=== PATIENT | male | born 1980 | race African-American/Black ===

== ENCOUNTER → 2019-01-03 | Outpatient (CLI) | payer OTHER ==
--- NOTE | 2019-01-03 18:18 | RAD ---
CT scan of the head without contrast 01/03/2019 Clinical History: Head injury. Headache. Technique: Unenhanced, contiguous, 5 mm axial sections were obtained through the head. One or more of the following individualized dose reduction techniques were utilized for this study: 1. Automated exposure control. 2. Adjustment of the mA and/or kV according to patient size. 3. Use of iterative reconstruction technique. Findings: The ventricles and sulci are within normal limits in size and configuration. No focal area of abnormal attenuation is seen involving the brain parenchyma. No extra-axial fluid collection is seen. No skull fracture is seen. Impression: Negative study. Electronically signed by: Emil Pretty MD (01/03/2019 6:15 PM) [facility]
== END | disposition home or self-care (01) ==
LOC: CT 17:24
PROVIDERS: ATTEND Preventive Medicine Occupational Medicine
DX: S16.1XXA Strain of muscle, fascia and tendon at neck level, initial encounter (principal); G44.311 Acute post-traumatic headache, intractable; X58.XXXA Exposure to other specified factors, initial encounter; Y93.89 Activity, other specified; Y92.89 Other specified places as the place of occurrence of the external cause; Y99.8 Other external cause status
CPT/HCPCS: 70450

== ENCOUNTER 2019-02-03 20:07 | Emergency (ER) | payer SELFPAY ==
[~2019-02-03] VITALS: Ht 175.3 cm; Wt 113.4 kg
[2019-02-03 20:31] VITALS: BP 163/115
--- NOTE | 2019-02-03 21:04 | RAD ---
Two-view left forearm dated 02/03/2019. No comparison available. Clinical data indication: Pain after injury. Evaluate for retained foreign body. FINDINGS: 2 views left forearm show normal bony alignment. No displaced fracture. No periostitis or bone destruction. No radiopaque foreign body. IMPRESSION: No apparent retained foreign body. Please note that glass can sometimes be nonradiopaque. Electronically signed by: Bishnu Davison MD (02/03/2019 9:01 PM) [facility]
--- NOTE | 2019-02-03 21:15 | PHYS DOC ---
Past Medical History Past Medical History: Hypertension (GENNA JAIMES APRN) Past Surgical History: No Surgical History (GENNA JAIMES APRN) Alcohol Use: Rarely Drug Use: None (GENNA JAIMES APRN) Adult General Chief Complaint Chief Complaint: FOREIGN BODY HPI HPI Patient is a 38 year old AA male, accompanied by his girlfriend, with complaints of glass stuck in his right forearm. Patient states he was attempting to fix a car window when it went off track and shattered cutting his arm. He reports that the pain is an 8 out of 10 on pain scale, increases of the site is touched. He denies any decreased range of motion. He is unsure of his last tetanus shot. (GENNA JAIMES APRN) Review of Systems Review of Systems Constitutional: Denies fever or chills [] Musculoskeletal: Denies joint pain [] Integument: See history of present illness Neurologic: Denies headache, focal weakness or sensory changes [] (GENNA JAIMES APRN) Current Medications Current Medications Current Medications Medications (Trade) Dose Ordered Sig/Rubin Start Time Stop Time Status Last Admin Dose Admin Diphtheria/ Tetanus/Acell Pertussis (Boostrix) 0.5 ml ONCE ONCE 02/03/19 21:30 02/03/19 21:41 DC 02/03/19 21:33 0.5 ML Neomycin/ Polymyxin/ Bacitracin (Triple Antibiotic Ointment) 1 pkt 1X ONCE 02/03/19 21:30 02/03/19 21:41 DC 02/03/19 21:31 1 PKT (URBANO MCCLELLAN DO) Allergies Allergies Allergies Coded Allergies Type Severity Reaction Last Updated Verified No Known Drug Allergies 02/03/19 No (URBANO MCCLELLAN DO) Physical Exam Physical Exam Constitutional: Well developed, well nourished, no acute distress, non-toxic appearance. [] HENT: Normocephalic, atraumatic, bilateral external ears normal, nose normal. [] Eyes: conjunctiva normal, no discharge. [] Neck: Normal range of motion,, no stridor. [] Cardiovascular:Heart rate regular rhythm, 2+ right radial pulse Lungs & Thorax: Respirations even and unlabored, no retractions, no respiratory distress Skin: Warm, dry, no erythema; several abrasions with no active bleeding noted to right forearm with scattered superficial shards of glass noted Extremities: No cyanosis, ROM intact Neurologic: Alert and oriented X 3, normal motor function, normal sensory function, no focal deficits noted. [] Psychologic: Affect normal, judgement normal, mood normal. [] (GENNA JAIMES APRN) Current Patient Data Vital Signs Vital Signs Date Time Temp Pulse Resp B/P (MAP) Pulse Ox O2 Delivery O2 Flow Rate FiO2 02/03/19 20:31 99.6 75 18 163/115 (131) 96 Room Air 99.6 (MCCLELLANURBANO DO) EKG EKG [] (GENNA JAIMES APRN) Radiology/Procedures Radiology/Procedures PROCEDURE: FOREARM LEFT Two-view left forearm dated 02/03/2019. No comparison available. Clinical data indication: Pain after injury. Evaluate for retained foreign body. FINDINGS: 2 views left forearm show normal bony alignment. No displaced fracture. No periostitis or bone destruction. No radiopaque foreign body. IMPRESSION: No apparent retained foreign body. Please note that glass can sometimes be nonradiopaque. [] (GENNA JAIMES APRN) Course & Med Decision Making Course & Med Decision Making Pertinent Labs and Imaging studies reviewed. (See chart for details) [] (GENNA JAIMES APRN) Dragon Disclaimer Dragon Disclaimer This electronic medical record was generated, in whole or in part, using a voice recognition dictation system. (GENNA JAIMES APRN) Departure Departure Impression: Primary Impression: Abrasion forearm Additional Impression: Foreign body of forearm, left, superficial Disposition: 01 HOME, SELF-CARE Condition: STABLE Referrals: NO PCP (PCP) Patient Instructions: Abrasion, [id number] Additional Instructions: Tylenol or ibuprofen as needed for pain. Recommend that you keep the area clean and dry. Apply antibiotic ointment and a bandage to the area twice daily and as needed. Follow-up with your primary care doctor if symptoms persist, return to the ER if symptoms worsen. Laceration/Wound Repair Laceration/Wound Repair : Wound Location: upper extremity (right forearm) Wound's Depth, Shape: superficial Wound Explored: foreign body removed (superficial shards of glass) Wound Debrided: minimal Progress This nurse practitioner cleansed patient's abrasions with surgical scrub and removed several small shards of glass from the superficial layers of skin, no wound repair needed. Wound dressed by nurse. (GENNA JAIMES APRN) Attending Signature Attending Signature I have reviewed the PA/MEDICAL RECORDS SUPERVISOR's note and plan of care. I was available for consultation as needed during the patient's visit in the emergency department. I agree with the clinical impression, plan, and disposition. (URBANO MCCLELLAN DO) Problem Qualifiers Additional Impression: Foreign body of forearm, left, superficial Encounter type: initial encounter Qualified Codes: S50.852A - Superficial foreign body of left forearm, initial encounter GENNA JAIMES APRN Feb 03, 2019 21:15 URBANO MCCLELLAN DO Feb 06, 2019 18:53
[2019-02-03] MEDS ORDERED: DIPHTH,PERTUSS(ACELL),TET TOX 0.5 ML DISP.SYRIN. VAX IM ONE (21:30)
[2019-02-03] MEDS ORDERED: NEOMY/BACITR/POLYMYXIN OINT PACKET. TP ONE (21:30)
== END 2019-02-03 21:44 | disposition home or self-care (01) ==
LOC: ER 20:07
DX: S50.852A Superficial foreign body of left forearm, initial encounter (principal); I10 Essential (primary) hypertension; W25.XXXA Contact with sharp glass, initial encounter; Y93.89 Activity, other specified; Y92.89 Other specified places as the place of occurrence of the external cause; Y99.8 Other external cause status
CPT/HCPCS: 10120; 12031; 73090; 90471; 90715; 99284

== ENCOUNTER 2019-04-29 20:20 | Emergency (ER) | payer OTHER ==
[~2019-04-29] VITALS: Ht 172.7 cm; Wt 117.9 kg
[2019-04-29 21:57] LABS: BASO % 1 % (0-3); EOS # 0.2 x10^3/uL (0.0-0.7); EOS % 3 % (0-3); HEMATOCRIT 41.9 % (39.0-53.0); HEMOGLOBIN 14.1 g/dL (13.0-17.5); LYMPH # 2.9 x10^3/uL (1.0-4.8); LYMPH % 35 % (24-48); MEAN CORPUSCULAR HEMOGLOBIN 28 pg (25-35); MEAN CORPUSCULAR HGB CONC 34 g/dL (31-37); MEAN CORPUSCULAR VOLUME 83 fL (79-100); MONO # 0.5 x10^3/uL (0.0-1.1); MONO % 6 % (0-9); NEUT # 4.7 x10^3/uL (1.8-7.7); NEUT % 56 % (31-73); PLATELET COUNT 317 x10^3/uL (140-400); RED BLOOD COUNT 5.06 x10^6/uL (4.30-5.70); RED CELL DISTRIBUTION WIDTH 13.6 % (11.5-14.5); WHITE BLOOD COUNT 8.3 x10^3/uL (4.0-11.0)
[2019-04-29 22:08] LABS: CALCIUM 9.9 mg/dL (8.5-10.1); CREATININE 1.2 mg/dL (0.7-1.3); GFR 82.4; POTASSIUM 3.2 mmol/L (3.5-5.1)
[2019-04-29 22:14] LABS: ALBUMIN 3.6 g/dL (3.4-5.0); ALBUMIN/GLOBULIN RATIO 0.7 (1.0-1.7); MAGNESIUM 1.8 mg/dL (1.8-2.4); TOTAL BILIRUBIN 0.7 mg/dL (0.2-1.0); TOTAL PROTEIN 8.7 g/dL (6.4-8.2)
--- NOTE | 2019-04-29 23:35 | RAD ---
PA and lateral chest radiographs 04/29/2019 CLINICAL HISTORY: Hemoptysis. PA and lateral digital radiographs ofthe chest were obtained. The cardiac silhouette is normal in size. The thoracic aorta is minimally tortuous. No acute pulmonary infiltrate is seen. No pleural effusion or pneumothorax is noted. Mild degenerative changes are seen involving the thoracic spine. IMPRESSION: No acute abnormality is seen. Electronically signed by: Emil Pretty MD (04/29/2019 11:32 PM) [facility]
[2019-04-29] MEDS ORDERED: IV NORMAL SALINE 1000ML BAG 1,000 ML IV ONE (23:45)
--- NOTE | 2019-04-30 00:58 | PHYS DOC ---
Past Medical History Past Medical History: Hypertension Past Surgical History: No Surgical History Alcohol Use: Rarely Drug Use: None Adult General Chief Complaint Chief Complaint: COUGH HPI HPI Patient is a 39 year old [f__sex] who presents with [] Review of Systems Review of Systems Constitutional: Denies fever or chills [] Eyes: Denies change in visual acuity, redness, or eye pain [] HENT: Denies nasal congestion or sore throat [] Respiratory: Denies cough or shortness of breath [] Cardiovascular: No additional information not addressed in HPI [] GI: Denies abdominal pain, nausea, vomiting, bloody stools or diarrhea [] : Denies dysuria or hematuria [] Musculoskeletal: Denies back pain or joint pain [] Integument: Denies rash or skin lesions [] Neurologic: Denies headache, focal weakness or sensory changes [] Endocrine: Denies polyuria or polydipsia [] All other systems were reviewed and found to be within normal limits, except as documented in this note. Current Medications Current Medications Current Medications Medications (Trade) Dose Ordered Sig/Rubin Start Time Stop Time Status Last Admin Dose Admin Info (CONTRAST GIVEN -- Rx MONITORING) 1 each PRN DAILY PRN 04/30/19 01:00 05/02/19 00:59 Iohexol (Omnipaque 350 Mg/ml) 100 ml 1X ONCE 04/30/19 01:00 04/30/19 01:01 DC Lorazepam (Ativan Inj) 1 mg 1X ONCE 04/30/19 00:15 04/30/19 00:16 DC Sodium Chloride 1,000 ml @ 1,000 mls/hr 1X ONCE 04/29/19 23:45 04/30/19 00:44 DC 04/30/19 00:09 1,000 MLS/HR Allergies Allergies Allergies Coded Allergies Type Severity Reaction Last Updated Verified No Known Drug Allergies 02/03/19 No Physical Exam Physical Exam Constitutional: Well developed, well nourished, no acute distress, non-toxic appearance. [] HENT: Normocephalic, atraumatic, bilateral external ears normal, oropharynx moist, no oral exudates, nose normal. [] Eyes: PERRLA, EOMI, conjunctiva normal, no discharge. [] Neck: Normal range of motion, no tenderness, supple, no stridor. [] Cardiovascular:Heart rate regular rhythm, no murmur [] Lungs & Thorax: Bilateral breath sounds clear to auscultation [] Abdomen: Bowel sounds normal, soft, no tenderness, no masses, no pulsatile masses. [] Skin: Warm, dry, no erythema, no rash. [] Back: No tenderness, no CVA tenderness. [] Extremities: No tenderness, no cyanosis, no clubbing, ROM intact, no edema. [] Neurologic: Alert and oriented X 3, normal motor function, normal sensory function, no focal deficits noted. [] Psychologic: Affect normal, judgement normal, mood normal. [] Current Patient Data Vital Signs Vital Signs Date Time Temp Pulse Resp B/P (MAP) Pulse Ox O2 Delivery O2 Flow Rate FiO2 04/29/19 21:00 98.2 70 16 213/144 (167) 99 Room Air 98.2 Lab Values Laboratory Tests Test 04/29/19 21:45 White Blood Count 8.3 x10^3/uL (4.0-11.0) Red Blood Count 5.06 x10^6/uL (4.30-5.70) Hemoglobin 14.1 g/dL (13.0-17.5) Hematocrit 41.9 % (39.0-53.0) Mean Corpuscular Volume 83 fL (79-100) Mean Corpuscular Hemoglobin 28 pg (25-35) Mean Corpuscular Hemoglobin Concent 34 g/dL (31-37) Red Cell Distribution Width 13.6 % (11.5-14.5) Platelet Count 317 x10^3/uL (140-400) Neutrophils (%) (Auto) 56 % (31-73) Lymphocytes (%) (Auto) 35 % (24-48) Monocytes (%) (Auto) 6 % (0-9) Eosinophils (%) (Auto) 3 % (0-3) Basophils (%) (Auto) 1 % (0-3) Neutrophils # (Auto) 4.7 x10^3/uL (1.8-7.7) Lymphocytes # (Auto) 2.9 x10^3/uL (1.0-4.8) Monocytes # (Auto) 0.5 x10^3/uL (0.0-1.1) Eosinophils # (Auto) 0.2 x10^3/uL (0.0-0.7) Basophils # (Auto) 0.0 x10^3/uL (0.0-0.2) Prothrombin Time 13.0 SEC (11.7-14.0) Prothrombin Time INR 1.0 (0.8-1.1) Activated Partial Thromboplast Time 31 SEC (24-38) D-Dimer (Sarahy) 0.28 ug/mlFEU (0.00-0.50) Sodium Level 142 mmol/L (136-145) Potassium Level 3.2 mmol/L (3.5-5.1) L Chloride Level 105 mmol/L (98-107) Carbon Dioxide Level 25 mmol/L (21-32) Anion Gap 12 (6-14) Blood Urea Nitrogen 7 mg/dL (8-26) L Creatinine 1.2 mg/dL (0.7-1.3) Estimated GFR (Cockcroft-Gault) 82.4 BUN/Creatinine Ratio 6 (6-20) Glucose Level 133 mg/dL (70-99) H Calcium Level 9.9 mg/dL (8.5-10.1) Magnesium Level 1.8 mg/dL (1.8-2.4) Total Bilirubin 0.7 mg/dL (0.2-1.0) Aspartate Amino Transferase (AST) 17 U/L (15-37) Alanine Aminotransferase (ALT) 18 U/L (16-63) Alkaline Phosphatase 59 U/L (46-116) Troponin I Quantitative < 0.017 ng/mL (0.000-0.055) KP-Cah-Z-Type Natriuretic Peptide 20 pg/mL (0-124) Total Protein 8.7 g/dL (6.4-8.2) H Albumin 3.6 g/dL (3.4-5.0) Albumin/Globulin Ratio 0.7 (1.0-1.7) L Laboratory Tests 04/29/19 21:45 Laboratory Tests 04/29/19 21:45 EKG EKG 2202- SR with RBBB no STEMI read by Dr. Mckeon. [] Radiology/Procedures Radiology/Procedures PROCEDURE: CHEST PA & LATERAL PA and lateral chest radiographs 04/29/2019 CLINICAL HISTORY: Hemoptysis. PA and lateral digital radiographs ofthe chest were obtained. The cardiac silhouette is normal in size. The thoracic aorta is minimally tortuous. No acute pulmonary infiltrate is seen. No pleural effusion or pneumothorax is noted. Mild degenerative changes are seen involving the thoracic spine. IMPRESSION: No acute abnormality is seen. PROCEDURE: CT ANGIOGRAPHY CHEST CT ANGIOGRAPHY CHEST INDICATION: Dyspnea, hemoptysis. Comparison: Radiograph 04/29/2019. TECHNIQUE: Following the uneventful administration of intravenous contrast, 100 cc Omnipaque 350, axial CT sections were obtained through the lungs and upper abdomen. Multiplanar reconstructions and MIP images were obtained. PQRS compliance statement: One or more of the following individualized dose reduction techniques were utilized for this examination: 1. Automated exposure control 2. Adjustment of the mA and/or kV according to patient size 3. Use of iterative reconstruction technique FINDINGS: Pulmonary vasculature: Nondiagnostic evaluation of the pulmonary arterial vasculature due to suboptimal bolus timing. The pulmonary trunk is normal in caliber. Lungs and Airways: No pulmonary mass or consolidation. Few small bilateral indeterminate pulmonary nodules with tax representative nodule as follows: Indeterminate left lower lobe nodule measuring 0.2 cm (series 3 image 114) No abnormality of the central airways. Pleura: The pleural spaces are normal. Heart and Mediastinum: The visualized thyroid is normal in size and attenuation. No axillary or supraclavicular lymphadenopathy. No mediastinal, hilar or retrocrural lymphadenopathy. The heart and pericardium are within normal limits. The great vessels of the thorax are normal. Residual thymic tissue. Abdomen: Limited images through the upper abdomen show no abnormality of the visualized organs. Bones and Soft Tissues: No acute osseous abnormality. Symmetric gynecomastia. IMPRESSION: 1. Nondiagnostic evaluation of the pulmonary arterial vasculature due to suboptimal bolus timing. Pulmonary trunk is not dilated. 2. No pulmonary mass or consolidation. No thoracic lymphadenopathy. 3. Few scattered small indeterminate pulmonary nodules. Consider optional 12 month follow-up unenhanced chest CT if patient has risk factors (history of smoking, history of malignancy, etc.) [] Course & Med Decision Making Course & Med Decision Making Pertinent Labs and Imaging studies reviewed. (See chart for details) [] Dragon Disclaimer Dragon Disclaimer This electronic medical record was generated, in whole or in part, using a voice recognition dictation system. Departure Departure Impression: Primary Impression: Hemoptysis, unspecified Additional Impressions: Hypertension Cough in adult patient Disposition: 01 HOME, SELF-CARE Condition: STABLE Referrals: NO PCP (PCP) Patient Instructions: Hemoptysis-Brief, Hypertension, [id number] Additional Instructions: Resume taking your Lisinopril as previously prescribed by your doctor in [place]. Follow up with a primary care doctor for further evaluation and treatment of your blood pressure, also for further monitoring of the incidental pulmonary nodules that were found in your CT scan. Return to the ER if symptoms worsen. Problem Qualifiers Additional Impressions: Hypertension Hypertension type: essential hypertension Qualified Codes: I10 - Essential (primary) hypertension GENNA JAIMES APRN Apr 30, 2019 00:57
[2019-04-30] MEDS ORDERED: IOHEXOL 350 MG/ML 100 ML VIAL. IV ONE (01:00)
[2019-04-30] MEDS ORDERED: CONTRAST GIVEN. MC PRN (01:00)
--- NOTE | 2019-04-30 01:12 | RAD ---
CT ANGIOGRAPHY CHEST INDICATION: Dyspnea, hemoptysis. Comparison: Radiograph 04/29/2019. TECHNIQUE: Following the uneventful administration of intravenous contrast, 100 cc Omnipaque 350, axial CT sections were obtained through the lungs and upper abdomen. Multiplanar reconstructions and MIP images were obtained. RS compliance statement: One or more of the following individualized dose reduction techniques were utilized for this examination: 1. Automated exposure control 2. Adjustment of the mA and/or kV according to patient size 3. Use of iterative reconstruction technique FINDINGS: Pulmonary vasculature: Nondiagnostic evaluation of the pulmonary arterial vasculature due to suboptimal bolus timing. The pulmonary trunk is normal in caliber. Lungs and Airways: No pulmonary mass or consolidation. Few small bilateral indeterminate pulmonary nodules with bilingual call center representative nodule as follows: Indeterminate left lower lobe nodule measuring 0.2 cm (series 3 image 114) No abnormality of the central airways. Pleura: The pleural spaces are normal. Heart and Mediastinum: The visualized thyroid is normal in size and attenuation. No axillary or supraclavicular lymphadenopathy. No mediastinal, hilar or retrocrural lymphadenopathy. The heart and pericardium are within normal limits. The great vessels of the thorax are normal. Residual thymic tissue. Abdomen: Limited images through the upper abdomen show no abnormality of the visualized organs. Bones and Soft Tissues: No acute osseous abnormality. Symmetric gynecomastia. IMPRESSION: 1. Nondiagnostic evaluation of the pulmonary arterial vasculature due to suboptimal bolus timing. Pulmonary trunk is not dilated. 2. No pulmonary mass or consolidation. No thoracic lymphadenopathy. 3. Few scattered small indeterminate pulmonary nodules. Consider optional 12 month follow-up unenhanced chest CT if patient has risk factors (history of smoking, history of malignancy, etc.) Electronically signed by: Miko Daniel MD (04/30/2019 1:09 AM) [id number]
[2019-04-30 01:35] VITALS: BP 174/107
--- NOTE | 2019-04-30 05:25 | EKG ---
[facility] [address] [place] [address] Test Date: 2019-04-29 Test Time: 22:02:53 Pat Name: KEESHA SIN Department: Room: Gender: M Transportation Technician: : 1980 Requested By: GENNA JAIMES Order Number: [id number] Reading MD: Measurements Intervals [place] Rate: 72 P: AR: QRS: -77 QRSD: 232 T: -37 QT: 428 QTc: 475 Interpretive Statements SINUS RHYTHM COMPLEX(ES) WITH ABERRANT INTRAVENTRICULAR CONDUCTION ABNORMAL LEFT AXIS DEVIATION RIGHT BUNDLE BRANCH BLOCK QRS(T) CONTOUR ABNORMALITY CONSISTENT WITH INFERIOR INFARCT AGE UNDETERMINED ABNORMAL ECG No previous ECG available for comparison
== END 2019-04-30 01:45 | disposition home or self-care (01) ==
LOC: ER 20:20
DX: R04.2 Hemoptysis (principal); I10 Essential (primary) hypertension
CPT/HCPCS: 36415; 71046; 71275; 80053; 83735; 83880; 84484; 85025; 85379; 85610; 85730; 93005; 96374; 99285; J2060; J7030